=== PATIENT | male | born 1985 | race Two or more races ===

== ENCOUNTER 2018-11-15 03:46 | Emergency (ER) | payer SELFPAY ==
[~2018-11-15] VITALS: Ht 180.3 cm; Wt 104.3 kg
[2018-11-15 03:55] VITALS: BP 140/88
--- NOTE | 2018-11-15 03:55 | NUR ---
ED Nurse Note: pt ariela ra 28 accompanied by [employer] via [employer]. per report, pt is OD on meth. pt is non verbal at this time. appears to be lethargic. pupil is dilated. unable to follow command. HS 135, bp 134/67
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
--- NOTE | 2018-11-15 04:12 | NUR ---
ED Nurse Note: blood sample and urine sample send to labs
[2018-11-15 04:17] LABS: EOSINOPHILS % (AUTO) 0.2 % (0.0-3.0); HEMATOCRIT 49.1 % (42.0-52.0); HEMOGLOBIN 16.8 G/DL (14.2-18.0); MEAN CORPUSCULAR VOLUME 87 FL (80-99); MONOCYTES % (AUTO) 7.3 % (1.0-10.0); NEUTROPHILS % (AUTO) 65.6 % (45.0-75.0); PLATELET COUNT 327 K/UL (150-450); RED BLOOD COUNT 5.63 M/UL (4.70-6.10); RED CELL DISTRIBUTION WIDTH 10.9 % (11.6-14.8); WHITE BLOOD COUNT 14.9 K/UL (4.8-10.8)
[2018-11-15 04:18] LABS: APPEARANCE,URINE SLIGHTLY CLOUDY; BILIRUBIN, URINE NEGATIVE (NEGATIVE); COLOR,URINE PALE YELLOW; GLUCOSE, URINE (UA) NEGATIVE (NEGATIVE); KETONES,URINE 1+ (NEGATIVE); LEUKOCYTE ESTERASE ,URINE NEGATIVE (NEGATIVE); NITRITE,URINE NEGATIVE (NEGATIVE); PH,URINE 6 (4.5-8.0); PROTEIN,URINE 3+ (NEGATIVE); UROBILINOGEN,URINE NORMAL MG/DL (0.0-1.0)
[2018-11-15 04:27] LABS: ANION GAP 16 mmol/L (5-15); BLOOD UREA NITROGEN 13 mg/dL (7-18); CALCIUM 9.1 MG/DL (8.5-10.1); CARBON DIOXIDE 24 MMOL/L (21-32); CHLORIDE 108 MMOL/L (98-107); CREATININE 1.3 MG/DL (0.55-1.30); POTASSIUM 3.2 MMOL/L (3.5-5.1); SODIUM 148 MMOL/L (136-145)
[2018-11-15] MEDS ORDERED: LORazepam Inj 2mg/ml 1ml IV ONE ×2 (04:45→05:00)
[2018-11-15 04:46] LABS: ALANINE AMINOTRANSFERASE 73 U/L (12-78); ALBUMIN 4.3 G/DL (3.4-5.0); ALKALINE PHOSPHATASE 122 U/L (46-116); ASPARTATE AMINO TRANSFERASE 61 U/L (15-37); CREATINE KINASE 1131 U/L (26-308)
--- NOTE | 2018-11-15 06:01 | NUR ---
ED Nurse Note: pt in bed, awake. speech slurred. VSS
--- NOTE | 2018-11-15 06:34 | NUR ---
ED Nurse Note: all 3 liters in. 2nd lactic sent down to lab
--- NOTE | 2018-11-15 07:30 | NUR ---
ED Nurse Note: report given to MARIANNE Chance
[2018-11-15 07:49] VITALS: BP 135/84
--- NOTE | 2018-11-15 07:51 | NUR ---
ED Nurse Note:pt. is still slightly disoriented, ambulatory, still anxious, compliant, continue to monitor
--- NOTE | 2018-11-15 09:11 | NUR ---
HAND-OFF: Report given to Tammy.
--- NOTE | 2018-11-15 09:18 | NUR ---
ED Nurse Note: Received pt in room ortho. pt aao x2-3 but wandering with steady gait. pt needs frequent redirection back to room. pt will be discharged after being sober.
[2018-11-15 09:22] VITALS: BP 143/77
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
[2018-11-15 10:26] VITALS: BP 143/77
--- NOTE | 2018-11-15 10:26 | NUR ---
ED Nurse Note: Pt cleared by health care Provider for discharge. DC instructions/prescription was given and explained to pt and verbalized understanding of teachings. All medical deviecs such as ID band removed. Pt is AAO x4, ambulatory and left with all personal belongings. Taxi was provided to pt to the address he lives with parents. pt lost t-shirt last night and new cloth was provided too.
== END 2018-11-15 10:35 | disposition home or self-care (01) ==
LOC: EDBD 03:46 → EMR 03:57
DX: E86.0 Dehydration (principal); R45.1 Restlessness and agitation; F10.129 Alcohol abuse with intoxication, unspecified; F15.10 Other stimulant abuse, uncomplicated; Y90.8 Blood alcohol level of 240 mg/100 ml or more
CPT/HCPCS: 36415; 80053; 80307; 81003; 82550; 83605; 84484; 85025; 87086; 93005; 96361; 96374; 99284; G0480; 80329